=== PATIENT | female | born 1955 | race African-American/Black ===

== ENCOUNTER 2016-09-23 09:46 | Emergency (ER) | payer MEDICARE, OTHER ==
[~2016-09-23] VITALS: Ht 172.7 cm; Wt 70.0 kg
[~2016-09-23 09:46] MED LIST: CYCL-36 PO; DICL75 PO; HYDR-2768 PO; LORTA5 PO; POTA-243 PO
[2016-09-23 09:48] VITALS: BP 136/72; PULSE 101; RESP 16; TEMP 97.8; O2SAT 100
[2016-09-23 10:03] VITALS: BP 141/71; PULSE 98; RESP 20; O2SAT 99
--- NOTE | 2016-09-23 10:17 | PD ---
HPI Chief Complaint: Cardiac Complaint Time Seen by Provider: 09:56 Travel History International Travel<30 days: No Contact w/Intl Traveler<30days: No Traveled to known affect area: No History of Present Illness HPI 60-year-old female complains of palpitation. Patient states the symptoms started a week and a half ago. Patient was seen by fixed assets accountant, Dr. Romero , 3 days ago. Patient states that EKG was done in the office. Patient was advised by Dr. Romero to follow with him within a year. Patient states that Dr. Romero advised patient that she has high heart rate and high blood pressure. Patient has been cutting down on her caffeine intake for the past few days. Patient states the palpitation got better for the past few days. Patient states that she has intermittent fluttering and palpitation for the past few days. Patient denies any chest pain or shortness of breath. Patient has history hypertension and on HCTZ and potassium. Patient also has history of chronic joint pain including shoulder pain and on hydrocodone for pain. PFSH Past Medical History Heart Rhythm Problems: No Cardiac Catheterization: No Cardiovascular Problems: No High Cholesterol: Yes Chest Pain: Yes Congestive Heart Failure: No Diabetes: No Diminished Hearing: No Hepatitis: Yes (C) Hypertension: Yes Myocardial Infarction: No : 2 Para: 1 : 1 Tubal Ligation: Yes Past Surgical History Cholecystectomy: Yes Coronary Artery Bypass Graft: No Gynecologic Surgery: Yes (ABLATION) Other Surgery: Yes (CYSTS REMOVED FROM SPINAL AREA 5 YEARS AGO, R LUMPECTOMY) Social History Alcohol Use: Yes Tobacco Use: No Substance Use: No Allergies-Medications (Allergen,Severity, Reaction): Coded Allergies: Sulfa (Verified Allergy, Severe, HIVES, 09/23/16) Reported Meds & Prescriptions Reported Meds & Active Scripts Active Diclofenac Sodium 75 Mg Tab 75 Mg PO Q12HR PRN Flexeril (Cyclobenzaprine HCl) 10 Mg Tab 10 Mg PO Q8HR PRN Do not not drive on medication. Do not take with alcohol. Hydrocodone/Acetaminophen 5 mg/325 mg 1 Tab Tab 1 Tab PO Q6H PRN Reported K-Dur (Potassium Chloride) 10 Meq Tabcr 10 Meq PO DAILY Hctz (Hydrochlorothiazide) 25 Mg Tab 50 Mg PO DAILY Review of Systems General / Constitutional: No: Fever Eyes: No: Visual changes HENT: No: Headaches Cardiovascular: Positive: Palpitations, No: Chest Pain or Discomfort Respiratory: No: Shortness of Breath Gastrointestinal: No: Abdominal Pain Genitourinary: No: Dysuria Musculoskeletal: No: Pain Skin: No Rash Neurologic: No: Weakness Psychiatric: No: Depression Endocrine: No: Polydipsia Hematologic/Lymphatic: No: Easy Bruising Physical Exam Narrative GENERAL: Well-nourished, well-developed patient. SKIN: Focused skin assessment warm/dry. HEAD: Normocephalic. EYES: No scleral icterus. No injection or drainage. NECK: Supple, trachea midline. No JVD or lymphadenopathy. CARDIOVASCULAR: Regular rate and rhythm without murmurs, gallops, or rubs. RESPIRATORY: Breath sounds equal bilaterally. No accessory muscle use. GASTROINTESTINAL: Abdomen soft, non-tender, nondistended. MUSCULOSKELETAL: No cyanosis, or edema. BACK: Nontender without obvious deformity. No CVA tenderness. Neurologic exam normal. Data Data Last Documented VS Vital Signs Date Time Temp Pulse Resp B/P Pulse Ox O2 Delivery O2 Flow Rate FiO2 09/23/16 10:03 98 20 141/71 99 Room Air 09/23/16 09:48 97.8 Orders Electrocardiogram (09/23/16 ) Complete Blood Count With Diff (09/23/16 10:08) Basic Metabolic Panel (Bmp) (09/23/16 10:08) Creatine Kinase (Cpk) (09/23/16 10:08) Troponin I (09/23/16 10:08) Prothrombin Time / Inr (Pt) (09/23/16 10:08) Act Partial Throm Time (Ptt) (09/23/16 10:08) Thyroid Stimulating Hormone (09/23/16 10:08) Chest, Single Ap (09/23/16 10:08) Iv Access Insert/Monitor (09/23/16 10:08) Ecg Monitoring (09/23/16 10:08) Oximetry (09/23/16 10:08) Labs Laboratory Tests Test 09/23/16 10:10 White Blood Count 6.9 TH/MM3 Red Blood Count 4.19 MIL/MM3 Hemoglobin 12.7 GM/DL Hematocrit 38.6 % Mean Corpuscular Volume 92.1 FL Mean Corpuscular Hemoglobin 30.4 PG Mean Corpuscular Hemoglobin 33.0 % Concent Red Cell Distribution Width 13.0 % Platelet Count 308 TH/MM3 Mean Platelet Volume 8.3 FL Neutrophils (%) (Auto) 58.5 % Lymphocytes (%) (Auto) 33.3 % Monocytes (%) (Auto) 6.7 % Eosinophils (%) (Auto) 0.8 % Basophils (%) (Auto) 0.7 % Neutrophils # (Auto) 4.1 TH/MM3 Lymphocytes # (Auto) 2.3 TH/MM3 Monocytes # (Auto) 0.5 TH/MM3 Eosinophils # (Auto) 0.1 TH/MM3 Basophils # (Auto) 0.0 TH/MM3 CBC Comment DIFF FINAL Differential Comment Prothrombin Time 10.6 SEC Prothromb Time International 1.0 RATIO Ratio Activated Partial 27.1 SEC Thromboplast Time Sodium Level 140 MEQ/L Potassium Level 3.4 MEQ/L Chloride Level 103 MEQ/L Carbon Dioxide Level 30.8 MEQ/L Anion Gap 6 MEQ/L Blood Urea Nitrogen 16 MG/DL Creatinine 1.00 MG/DL Estimat Glomerular Filtration 68 ML/MIN Rate Random Glucose 96 MG/DL Calcium Level 9.0 MG/DL Total Creatine Kinase 180 U/L Troponin I LESS THAN 0.02 NG/ML Thyroid Stimulating Hormone 1.620 uIU/ML 3rd Gen [facility] Medical Decision Making Medical Screen Exam Complete: Yes Emergency Medical Condition: Yes Interpretation(s) 10:16 AM. EKG shows sinus rhythm nonspecific ST-T wave change. 12:06 PM. Last Impressions Chest X-Ray 09/23/16 1008 Signed Impressions: Service Date/Time: September 10:09 - CONCLUSION: No acute cardiopulmonary abnormality is identified. Alex Bennett MD 12:06 PM. CBC within normal limit. Potassium 3.4. Cardiac enzymes are normal. TSH normal. Differential Diagnosis Differential diagnosis including arrhythmia, PACs, PVCs, atrial fibrillation, atrial flutter, arrhythmia. Narrative Course 60-year-old female with intermittent fluttering and palpitation. Diagnosis Primary Impression: Cardiac arrhythmia Qualified Code: I49.9 - Cardiac arrhythmia, unspecified cardiac arrhythmia type Patient Instructions: General Instructions Additional Instructions: Avoid caffeine products. Follow-up with fixed assets accountant. Return if worse. Med/Other Pt SpecificInfo: No Change to Meds Disposition: 01 DISCHARGE HOME Condition: Stable Kale Delatorre MD September 23, 2016 10:16
--- NOTE | 2016-09-23 10:26 | RADRPT ---
EXAM DATE/TIME: 09/23/2016 10:09 [facility] COMPARISON: CHEST SINGLE AP, February 10, 2015, 15:30. INDICATIONS : Palpitations MEDICAL HISTORY : None. SURGICAL HISTORY : None. ENCOUNTER: Initial ACUITY: 1 day PAIN SCORE: 0/10 LOCATION: Bilateral chest FINDINGS: Portable AP view of the chest demonstrates a normal-sized cardiac silhouette. No effusion, consolidat ion, or pneumothorax is visualized. The bones and soft tissues demonstrate no acute abnormality. CONCLUSION: No acute cardiopulmonary abnormality is identified. Alex Bennett MD on September 23, 2016 at 10:24 Board Certified Radiologist. This report was verified electronically.
[2016-09-23 10:32] LABS: AUTOMATED NEUTROPHIL # 4.1 TH/MM3 (1.8-7.7); BASOPHIL % 0.7 % (0.0-2.0); EOSINOPHIL # 0.1 TH/MM3 (0-0.4); EOSINOPHIL % 0.8 % (0.0-4.0); HEMATOCRIT 38.6 % (35.0-46.0); HEMO FLAGS DIFF FINAL; LYMPH % 33.3 % (9.0-44.0); LYMPHOCYTE # 2.3 TH/MM3 (1.0-4.8); MEAN CELL VOLUME 92.1 FL (80.0-100.0); MEAN CORPUSCULAR HEMOGLOBIN 30.4 PG (27.0-34.0); MONO % 6.7 % (0.0-8.0); NEUT % 58.5 % (16.0-70.0); PLATELET COUNT 308 TH/MM3 (150-450); RED BLOOD COUNT 4.19 MIL/MM3 (4.00-5.30); WHITE BLOOD COUNT 6.9 TH/MM3 (4.0-11.0)
[2016-09-23 10:46] LABS: APTT (PATIENT) 27.1 SEC (24.3-30.1); PROTHROMBIN TIME - PATIENT 10.6 SEC (9.8-11.6)
[2016-09-23 10:57] LABS: ANION GAP 6 MEQ/L (5-15); BICARBONATE 30.8 MEQ/L (21.0-32.0); BLOOD UREA NITROGEN 16 MG/DL (7-18); CHLORIDE 103 MEQ/L (98-107); GLOMERULAR FILTRATION RATE 68 ML/MIN (>89); POTASSIUM 3.4 MEQ/L (3.5-5.1); SODIUM (NA) 140 MEQ/L (136-145)
[2016-09-23 10:58] LABS: CREATINE KINASE 180 U/L (26-192)
[2016-09-23 12:33] VITALS: BP 146/71
--- NOTE | 2016-09-23 18:32 | EKG ---
Date Performed: 09/23/2016 Time Performed: 10:03:40 PTAGE: 60 years EKG: Sinus rhythm POSSIBLE LEFT ATRIAL ENLARGEMENT POSSIBLE LEFT VENTRICULAR HYPERTROPHY ABNORMAL ECG Compared to prio r tracing no significant change PREVIOUS TRACING on 02/10/2015 DOCTOR: Kevin Jamison Interpretating Date/Time 09/23/2016 18:29:26
== END 2016-09-23 12:57 | disposition home or self-care (01) ==
LOC: NEPE 09:46
DX: I49.9 Cardiac arrhythmia, unspecified (principal); R94.31 Abnormal electrocardiogram [ECG] [EKG]; I10 Essential (primary) hypertension; M25.519 Pain in unspecified shoulder; G89.29 Other chronic pain
CPT/HCPCS: 71010; 80048; 82550; 84443; 84484; 85025; 85610; 85730; 93005